=== PATIENT | female | born 1970 | race Caucasian/White ===

== ENCOUNTER 2020-11-10 07:28 | Emergency (ER) | payer MEDICAID ==
[~2020-11-10] VITALS: Ht 177.8 cm; Wt 104.5 kg
[2020-11-10 07:37] VITALS: BP 174/102
[2020-11-10] MEDS ORDERED: TETanus/Pertussis (Acell)/Diphther VAC/PF (Tdap-Adult) 0.5ml syringe IMVAC ONE (08:00)
[2020-11-10] MEDS ORDERED: LIDOcaine 1% W/epiNEPHrine 1:200,000 10ml vial IJ ONE (08:00)
== END 2020-11-10 09:06 | disposition home or self-care (01) ==
LOC: ER 07:29
DX: S61.411A Laceration without foreign body of right hand, initial encounter (principal); F15.90 Other stimulant use, unspecified, uncomplicated; Z72.89 Other problems related to lifestyle; W25.XXXA Contact with sharp glass, initial encounter; Y93.89 Activity, other specified; Y92.89 Other specified places as the place of occurrence of the external cause; Y99.8 Other external cause status
CPT/HCPCS: 12001; 90471; 90715; 99283